=== PATIENT | female | born 1970 | race African-American/Black ===

== ENCOUNTER → 2017-04-17 | Outpatient (CLI) | payer OTHER | LOC: RAD 08:38 | DX: Z12.31 Encounter for screening mammogram for malignant neoplasm of breast (principal) ==

== ENCOUNTER → 2018-04-16 | Outpatient (CLI) | payer OTHER | LOC: RAD 03:52 | DX: Z12.31 Encounter for screening mammogram for malignant neoplasm of breast (principal) ==

== ENCOUNTER → 2019-04-01 | Outpatient (CLI) | payer BC, OTHER | LOC: RAD 10:09 | DX: Z12.31 Encounter for screening mammogram for malignant neoplasm of breast (principal) ==

== ENCOUNTER → 2020-04-03 | Outpatient (CLI) | payer OTHER | LOC: BC 08:04 | PROVIDERS: ATTEND Obstetrics & Gynecology | DX: Z12.31 Encounter for screening mammogram for malignant neoplasm of breast (principal) ==

== ENCOUNTER → 2020-04-05 | Outpatient (CLI) | payer OTHER | LOC: BC 08:12 | PROVIDERS: ATTEND Radiology Diagnostic Radiology | DX: N60.01 Solitary cyst of right breast (principal) ==

== ENCOUNTER → 2021-04-15 | Outpatient (CLI) | payer OTHER | LOC: BC 08:20 | PROVIDERS: ATTEND Obstetrics & Gynecology | DX: Z12.31 Encounter for screening mammogram for malignant neoplasm of breast (principal) ==

== ENCOUNTER → 2021-04-23 | Outpatient (CLI) | payer OTHER | LOC: ULTRA 08:30 | PROVIDERS: ATTEND Obstetrics & Gynecology | DX: N63.41 Unspecified lump in right breast, subareolar (principal) ==

== ENCOUNTER → 2021-05-06 | Outpatient (CLI) | payer OTHER ==
--- NOTE | 2021-05-13 18:06 | PATH ---
[facility] [place] [address] PATHOLOGY RPT PROCEDURE Name: DEANNE MOORE Room #: REG [facility] M..#: [id number] Admission: 05/06/21 Date of : 68 Discharge: Report #: [id number] Path Case #: [id number] [facility] Accession Number: [id number] . 01 Material submitted: . breast - RIGHT BREAST MASS. Modifiers: right . 01 Clinical history: . BREAST BIOPSY STEREOTACTIC . 02 Diagnosis: Breast, right breast mass central, needle core biopsy: - INVASIVE POORLY DIFFERENTIATED DUCTAL ADENOCARCINOMA, KANA GRADE III/III MEASURING AT LEAST 0.6 CM SINGLE CORE IN CONTIGUOUS LENGTH. - DUCTAL CARCINOMA IN SITU, HIGH NUCLEAR GRADE, MICROPAPILLARY AND CRIBRIFORM TYPE. (IUV:yohan; 05/07/2021) S 05/09/2021 0851 Local . 02 Comment: Specimen type: Needle core biopsy Tumor site: Right breast central mass Tumor quantitation: 0.6 cm Histologic type: Invasive ductal carcinoma Histologic grade: [place] grade III Tubules, nuclei and mitoses: 3, 3 and 2, respectively LVSI: Not identified Microcalcifications: Not identified Markers: ER, IN, HER-2/belkis, and Ki-67 Block: A1. . Multiple properly controlled immunohistochemical stains are performed on block A5. The tumor cells are strongly reactive to AE1/AE3 consistent with the finding of carcinoma. P63 and smooth muscle myosin show no myoepithelial cells present supporting the diagnosis of invasive carcinoma. . Dental Laboratory Supervisor slides were co-reviewed by Dr. Manjula Smith, who concurs with my diagnosis. . Findings of this case are telephoned to Ms. Mobley, in our breast center at 1:05 p.m. on 05/07/2021). (IUV:yohan; 05/07/2021) . 02 Addendum: . Special studies report received from [facility], [address] [place] [address], [address], [place], [address], on case [id number], [place] [address] PATHOLOGY RPT PROCEDURE Name: DEANNE MOORE Room #: REG CLKulwinder Chin#: [id number] Admission: 05/06/21 Date of : 68 Discharge: Report #: [id number] Path Case #: [id number] labeled with their number [id number], dated 05/13/2021. . Breast/Prognostic Marker Analysis . Specimen Site: Breast-Breast cancer Specimen ID #: [id number] . ER (Estrogen Receptor) Negative Percent: 0.00 Analysis: Manual Staining Intensity: Not Applicable Internal Control: Present and Positive Comments: ER stain reviewed with Dr. Irene Sexton who concurs with the interpretation. . IN (Progesterone Receptor) Negative Percent: 0.00 Analysis: Manual Staining Intensity: Not Applicable Internal Control: Present and Positive . HER2 Positive Score: 3+ Analysis: Manual . Ki-67 High Proliferation Percent: 80.00% Analysis: Manual . Time to Fixation (Cold Ischemic Time): 2 minutes Duration of Fixation: 13 hours and 38 minutes Type of Fixative: 10% Neutral Buffered Formalin . . at [facility] Med Jackson MD [employer] . Methodology: The HER2 Receptor protein expression is analyzed using the [place] HER2 rabbit monoclonal antibody (clone [id number]). This assay is used for diagnostic determination of the HER2 protein over-expression in paraffin embedded, formalin fixed breast cancer tissue on the [place] [address] PATHOLOGY RPT PROCEDURE Name: DEANNE MOORE Room #: REG CL Giuseppe#: [id number] Admission: 05/06/21 Date of : 68 Discharge: Report #: [id number] Path Case #: [id number] is processed using a secondary antibody-HRP conjugate detection system. The membrane staining of the tumor is determined either by manual score or image analysis. This antibody is intended for in vitro diagnostic use. The score is reported as 0, 1+, 2+, or 3+. This test is used for clinical purposes. . A rabbit monoclonal antibody (clone SP1) that recognized the Estrogen Receptor is used to perform immunohistochemistry on routinely fixed (formalin) paraffin embedded tissue on the [place] Benchmark. The specimen is processed using a secondary antibody-HRP conjugate detection system. The percentage of stained tumor nuclei is determined either manually or by image analysis. This test is intended for in vitro diagnostic use. This test is used for clinical purposes. . A rabbit monoclonal antibody (clone 1E2) that recognized the Progesterone Receptor is used to perform immunohistochemistry on routinely fixed (formalin) paraffin embedded tissue on the [place] Benchmark. The specimen is processed using a secondary antibody-HRP conjugate detection system. The percentage of stained tumor nuclei is determined either manually or by image analysis. This test is intended for in vitro diagnostic use. This test is used for clinical purposes. . A rabbit monoclonal antibody (clone 30-9) that recognized Ki67 is used to perform immunohistochemistry on routinely fixed (formalin) paraffin embedded tissue on the [place] Benchmark. The specimen is processed using a secondary antibody-HRP conjugate detection system. The percentage of stained tumor nuclei is determined either manually or by image analysis. This test is intended for in vitro diagnostic use. This test is used for clinical purposes. . Intended Use: This antibody is intended for in vitro diagnostic (IVD) use. HER2 (4B5) is a rabbit monoclonal antibody intended for the semi-quantitative detection of HER2 antigen in sections of formalin-fixed, paraffin embedded neoplastic tissue. . This antibody is intended for in vitro diagnostic (IVD) use. Estrogen Receptor (ER) (SP1) is a rabbit monoclonal antibody (IgG) that is intended for the qualitative detection of estrogen receptor (ER) antigen in sections of formalin-fixed, paraffin-embedded tissue. ER is a rabbit monoclonal antibody that recognizes human estrogen receptor alpha. . This antibody is intended for in vitro diagnostic (IVD) use. Progesterone Receptor (IN) (1E2) is a rabbit monoclonal antibody (IgG) that is intended for the qualitative detection of progesterone receptor (IN) antigen in sections of formalin fixed, paraffin embedded tissue. IN is a rabbit monoclonal antibody that recognizes the A and B forms of the human progesterone receptor. [facility] [address] [place] [address] PATHOLOGY RPT PROCEDURE Name: DEANNE MOORE Room #: REG CLI [facility].#: [id number] Admission: 05/06/21 Date of : 68 Discharge: Report #: [id number] Path Case #: [id number] . This antibody is intended for in vitro diagnostic (IVD) use. Ki-67 (30-9) is a rabbit monoclonal antibody (IgG) directed against C-terminal portion of Ki-67 antigen. Staining for Ki-67 can be used to aid in assessing the proliferative activity of normal and neoplastic tissue. Ki-67 is a nuclear protein expressed in proliferating cells. During the cell cycle, the Ki-67 antigen is present in the G1, S, G2 and M phase but is absent in the G0 (quiescent phase). . Disclaimer: This Test was performed by [facility] at [address] [address], [place], [address]. . [facility] is a business unit of [facility] a wholly-owned subsidiary of [employer]. . This assay has not been validated on decalcified tissues. Results should be interpreted with caution if this specimen was decalcified given the likelihood of false negativity on decalcified specimens. . Any image(s) that accompany this report is/are a phone representative image(s) only and should not be used to render a diagnosis. . This interpretation is contingent on the specimen and the clinical information received. . For any special tests/stains performed, known positive cells or tissues are tested with each marker and examined to ensure positivity. Positive and negative internal controls, if present, react appropriately. . This analysis is an adjunct to the evaluation of the referring physician and does not represent a final diagnosis. . The immunohistochemistry tests performed at [facility]. were validated on tissue fixed in 10% neutral buffered formalin. The performance characteristics of the tests performed on tissue processed in other fixatives is not known. . HER2 testing at [facility] [employer] is performed in compliance with the 2018 updated ASCO/CAP Clinical Practice Guideline Focused Update. If the result is EQUIVOCAL (2+), it must be confirmed by an alternative assay such as FISH. . REFERENCE: Suzan DORAN, Alexandr CHAPA, Mary KH, et al: Human epidermal growth factor receptor 2 testing in breast cancer: ASCO/CAP clinical practice guideline focused update. Arch Pathol Lab Med. 2018;142:8856-[address]. [address] [address] PATHOLOGY RPT PROCEDURE Name: TERESADEANNE Room #: REG CL Giuseppe#: [id number] Admission: 05/06/21 Date of : 68 Discharge: Report #: [id number] Path Case #: [id number] . HER2 and ER/IN ASCO/CAP guidelines require fixation in neutral buffered formalin for a minimum of 6 and a maximum of 72 hours. Fixation times less than 6 hours may not adequately preserve cell proteins. Fixation times longer than 72 hours may cause excess cross-linking of proteins reducing the antigen available for staining. Either scenario can cause reduced staining; hence false negative results are possible and should be considered for these situations if the HER2 IHC score is less than 3+ or ER or IN is negative (no staining or <1% positive). It is recommended that specimens fixed longer than 72 hours with HER2 IHC scores less than 3+ be confirmed by HER2 FISH. The time from biopsy/excision to fixation in formalin (cold ischemic time) must be less than 1 hour. Time to fixation (cold ischemic time) greater than 1 hour should be interpreted with caution. HER2 testing, mainly HER2 by FISH, is particularly vulnerable since excessive cold ischemic time results in preferential loss of HER2 probe signals that may lead to false negative results. Use of unstained slides cut more than 6 weeks before analysis is not recommended. . ER/PgR testing at [facility] [employer] is performed in compliance with the ASCO/CAP Clinical Practice Guidelines. If the result for ER is 1-10% it is reported as Low Positive, < 1% is Negative and > 10% is Positive. PgR is reported as Negative if < 1% and Positive if > or equal to 1%. . REFERENCE: Mary KH, Alexandr CHAPA, Cathleen M,et al. Estrogen and progesterone receptor testing in breast cancer. ASCO/CAP guideline update. Arch Pathol Lab Med. 2020;144:545-563. . . SCORE STAINING PATTERN IN TUMOR CELLS INTERPRETATION RESULTS 0 No staining observed or incomplete, faint membrane staining in less than or equal to 10% of tumor cells. Negative 1+ Incomplete, faint membrane staining in greater than 10% of tumor cells. Negative 2+ Weak to moderate complete membrane staining observed in greater than 10% of tumor cells. Equivocal* *Must be confirmed by alternative assay (IHC/FISH/Dual EFREM) 3+ Intense, complete membrane staining in greater than 10% of tumor cells. Positive . A complete copy of the report is on file. [address] [address] PATHOLOGY RPT PROCEDURE Name: DEANNE MOORE Room #: REG [facility]#: [id number] Admission: 05/06/21 Date of : 68 Discharge: Report #: [id number] Path Case #: [id number] . Professional and Technical services performed by [facility] at [address], [place] [address]. . (IUV:amj 05/13/2021) . AZJ/05/13/2021 Addendum Electronically Signed by Maribell De La Cruz MD, Pathologist . 02 Electronically signed: . Maribell De La Cruz MD, Pathologist NPI- [id number] . 01 Gross description: . Received in formalin labeled "Deanne Moore and right". Additional information from the requisition states "central right breast mass". Received are multiple white-yellow fibroadipose breast cores ranging from 1.0-1.8 cm in length and 0.2-0.3 cm in diameter. The specimen is entirely submitted in cassette A1-A5. The specimen was collected on 05/06/2021 at 10 AM and placed in formalin and 10:02 AM. The specimen will be removed from formalin on 05/06/2021 at 11:40 PM. The specimen will be in formalin more than 6 hours in length and 72 hours.(BLJ; 05/06/2021) BLJ/BLJ 05/06/2021 1735 Local . 02 Pathologist provided ICD-10: C50.911, D05.11 . 02 CPT . 682647, [id number], F63689 Specimen Comment: A courtesy copy of this report has been sent to [phone], [phone] Specimen Comment: [phone] Specimen Comment: Report sent to / DR HAQ Performed at: [address], [place], [place] [id number] MD Roberto Carlos Mcclelland MD Phone: [phone] Performed at: [address] [id number] MD Maribell De La Cruz MD Phone: [phone]
== END | disposition home or self-care (01) ==
LOC: BC 08:37
PROVIDERS: ATTEND Obstetrics & Gynecology
DX: C50.911 Malignant neoplasm of unspecified site of right female breast (principal); R92.1 Mammographic calcification found on diagnostic imaging of breast